=== PATIENT | female | born 1965 | race Caucasian/White ===

== ENCOUNTER 2017-03-04 21:15 | Emergency (ER) | payer OTHER ==
[2017-03-05] MEDS ORDERED: OXYCODONE-ACETAMINOPHEN 5-325 MG TABLET PO ONE (01:36)
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
[2017-03-05] MEDS ORDERED: HYDROCODONE/ACETAMINOPHEN 5-325 MG 6 TAB/DSPK PO PRN (02:32)
[2017-03-05 02:45] VITALS: BP 164/94
== END 2017-03-05 02:35 | disposition home or self-care (01) ==
LOC: ER 21:15
DX: S16.1XXA Strain of muscle, fascia and tendon at neck level, initial encounter (principal); S46.912A Strain of unspecified muscle, fascia and tendon at shoulder and upper arm level, left arm, initial encounter; S09.90XA Unspecified injury of head, initial encounter; V43.52XA Car driver injured in collision with other type car in traffic accident, initial encounter; Y93.89 Activity, other specified; M25.512 Pain in left shoulder; R11.0 Nausea; M54.2 Cervicalgia
CPT/HCPCS: 70450; 72125; 99284

== ENCOUNTER 2017-03-26 10:24 | Emergency (ER) | payer OTHER ==
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
[2017-03-26 12:12] VITALS: BP 138/88
== END 2017-03-26 12:00 | disposition home or self-care (01) ==
LOC: ER 10:24
DX: M54.2 Cervicalgia (principal); R03.0 Elevated blood-pressure reading, without diagnosis of hypertension; M25.512 Pain in left shoulder; V87.7XXD Person injured in collision between other specified motor vehicles (traffic), subsequent encounter
CPT/HCPCS: 99283

== ENCOUNTER 2017-10-02 09:51 | Emergency (ER) | payer SELFPAY ==
--- NOTE | 2017-10-02 10:06 | ER Document Report ---
ED General - General Chief Complaint: Fall Injury Stated Complaint: FALL,LEFT KNEE PAIN Time Seen by Provider: 10/02/17 10:05 Mode of Arrival: Wheelchair Information source: Patient Notes: Patient is a 52 year old female complaining of left shoulder/arm pain and left knee pain with associated swelling that started after she tripped and fell 3 days ago. She reports that she is not concerned about her shoulder/arm but more concerned with the swelling of her knee. She reports pain is worse with weight bearing and ambulation. She has tried OTC pain without any relief. Denies hitting head or LOC. She is not on any anti-coagulants. TRAVEL OUTSIDE OF THE [place] IN LAST 30 DAYS: No - Related Data Allergies/Adverse Reactions: aspirin Allergy (Verified 10/02/17 09:51) Past Medical History - General Information source: Patient - Social History Smoking Status: Unknown if Ever Smoked Family History: Reviewed & Not Pertinent Renal/ Medical History: Denies: Hx Peritoneal Dialysis Past Surgical History: Reports: Hx Breast Surgery - cystectomy, Hx Hysterectomy , Hx Orthopedic Surgery - Lt shoulder - Immunizations Hx Diphtheria, Pertussis, Tetanus Vaccination: Yes Review of Systems - Review of Systems Constitutional: See HPI EENT: No symptoms reported Cardiovascular: No symptoms reported Respiratory: No symptoms reported Gastrointestinal: No symptoms reported Genitourinary: No symptoms reported Female Genitourinary: No symptoms reported Musculoskeletal: See HPI Skin: No symptoms reported Hematologic/Lymphatic: No symptoms reported Neurological/Psychological: See HPI Physical Exam - Vital signs Vitals: Temp Pulse Resp BP Pulse Ox 97.9 F 108 H 16 131/84 H 94 10/02/17 09:57 10/02/17 09:57 10/02/17 09:57 10/02/17 09:57 10/02/17 09:57 - Notes Notes: PHYSICAL EXAM: CONSTITUTIONAL: Alert and oriented, well-appearing and in no acute distress. HENT: Normocephalic, atraumatic. Trachea midline. Uvula midline. Moist mucous membranes. EYES: Pupils equal round and reactive to light, EOM intact. Sclera anicteric, conjunctiva are normal. No entrapment. NECK: supple without lymphadenopathy. No midline tenderness or paraspinous muscle spasms. No step-offs or deformities. ROM intact. HEART: Regular rate and rhythm without murmurs. LUNGS: CTAB and equal. No wheezes, rales or rhonchi. BACK: nontender, no paraspinous spasm, 5+/5 strengths, DTRs 2+, SLR -. EXTREMITIES: left elbow - mild tenderness to palpation with ecchymosis, no deformity or edema. Normal range of motion, no pitting edema. No cyanosis. Cap Refill <3 seconds. Left knee - tender to palpation over prepataller region with significant non-pitting edema and overlying ecchymosis, no deformity, erythema. ROM intact but painful. Distal pulses intact. NEURO: Cranial nerves grossly intact. Normal sensory/motor exams. PSYCH: Normal mood, normal affect. SKIN: Warm and dry. Normal turgor. No rashes or lesions noted. Course - Re-evaluation Re-evalutation: 10/02/17 10:27 Patient seen and examined. Patient is alert and oriented, speaking in full sentences without difficulty. Left knee with abrasion and obvious swelling, possible effusion. Will order x-ray. 10/02/17 11:20 Reviewed imaging studies, no acute fracture or joint effusion. Noted prepatellar swelling. Will supply Gomez wrap and give pain medication. Follow- up with orthopedics as directed. At this time, will discharge with return precautions and follow-up recommendations. Verbal discharge instructions given at the bedside and opportunity for questions given. Medication warnings reviewed. Patient is in agreement with this plan and has verbalized understanding of return precautions and the need for primary care follow-up in the next 24-72 hours. - Vital Signs Vital signs: Temp Pulse Resp BP Pulse Ox 97.7 F 100 16 130/75 H 98 10/02/17 11:42 10/02/17 11:42 10/02/17 11:42 10/02/17 11:42 10/02/17 11:42 Discharge - Discharge Clinical Impression: Swelling of knee joint, left Accidental fall Qualifiers: Encounter type: initial encounter Qualified Code(s): W19.XXXA - Unspecified fall, initial encounter Left knee injury Qualifiers: Encounter type: initial encounter Qualified Code(s): S89.92XA - Unspecified injury of left lower leg, initial encounter Condition: Stable Disposition: HOME, SELF-CARE Additional Instructions: Your x-rays did not show any fracture or joint effusion. We recommend using Gomez wrap, ice and elevating your knee. We have prescribed to pain medication, do not take while drinking alcohol or driving. We advised you to follow-up with orthopedics. Return if symptoms worsen. Prescriptions: Oxycodone HCl/Acetaminophen [Percocet 5-325 mg Tablet] 1 tab PO Q6HP PRN #10 tablet PRN Reason: Forms: Elevated Blood Pressure
--- NOTE | 2017-10-02 11:12 | RADIOLOGY REPORT (SQ) ---
EXAM DESCRIPTION: KNEE LEFT 4 VIEW COMPLETED DATE/TIME: 10/02/2017 10:47 am REASON FOR STUDY: s/p fall, swelling COMPARISON: None. NUMBER OF VIEWS: Four views. TECHNIQUE: AP, lateral, and both oblique radiographic images acquired of the left knee. LIMITATIONS: None. FINDINGS: MINERALIZATION: Osteopenic BONES: No acute fracture or dislocation. No worrisome bone lesions. JOINT: No suprapatellar knee joint effusion. Mild lateral and medial compartment joint space narrowi ng. SOFT TISSUES: There is diffuse prepatellar soft tissue swelling extending into the pretibial soft tis sues. No radiopaque foreign body. No soft tissue gas OTHER: No other significant finding. IMPRESSION: No acute displaced fracture. No joint effusion. TECHNICAL DOCUMENTATION: JOB ID: [id number]- All Rights Reserved
[2017-10-02] MEDS ORDERED: OXYCODONE-ACETAMINOPHEN 5-325 MG TABLET PO ONE (11:34)
[2017-10-02 11:45] VITALS: BP 130/75
== END 2017-10-02 11:43 | disposition home or self-care (01) ==
LOC: ER 09:51
DX: S80.02XA Contusion of left knee, initial encounter (principal); M25.462 Effusion, left knee; W19.XXXA Unspecified fall, initial encounter; Y92.480 Sidewalk as the place of occurrence of the external cause; Z88.6 Allergy status to analgesic agent
CPT/HCPCS: 99283

== ENCOUNTER 2017-11-01 08:57 | Emergency (ER) | payer SELFPAY ==
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
[2017-11-01] MEDS ORDERED: HYDROCODONE/ACETAMINOPHEN 5-325 MG TABLET PO ONE ×2 (09:13→11:18)
--- NOTE | 2017-11-01 10:27 | RADIOLOGY REPORT (SQ) ---
EXAM DESCRIPTION: ELBOW LEFT OVER 2 VIEWS COMPLETED DATE/TIME: 11/01/2017 10:15 am REASON FOR STUDY: fall 2 nights ago COMPARISON: None. NUMBER OF VIEWS: Four views. TECHNIQUE: AP, lateral, and both oblique radiographic images acquired of the left elbow. LIMITATIONS: None. FINDINGS: MINERALIZATION: Normal. BONES: Partial visualization distal humerus fracture. Bones otherwise intact. JOINT: No effusion. SOFT TISSUES: Soft tissue swelling. OTHER: No other significant finding. IMPRESSION: PARTIAL VISUALIZATION DISTAL HUMERUS FRACTURE. NO ADDITIONAL ACUTE OR SIGNIFICANT FINDI NGS. TECHNICAL DOCUMENTATION: JOB ID: [id number] [email or web address]- All Rights Reserved
--- NOTE | 2017-11-01 10:28 | RADIOLOGY REPORT (SQ) ---
EXAM DESCRIPTION: HUMERUS LEFT COMPLETED DATE/TIME: 11/01/2017 10:15 am REASON FOR STUDY: FALL 2 NIGHTS AGO COMPARISON: None. NUMBER OF VIEWS: Two views. TECHNIQUE: Two radiographic images were acquired of the left humerus to include elbow and shoulder i n at least one projection. LIMITATIONS: None. FINDINGS: MINERALIZATION: Normal. BONES: Spiral fracture distal humeral diaphysis with approximately 2 cm separation of dominant fractu re fragments. 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 SOFT TISSUES: Associated soft tissue swelling. OTHER: No other significant finding. IMPRESSION: MODERATELY DISPLACED SPIRAL FRACTURE DISTAL HUMERAL DIAPHYSIS ABOVE. TECHNICAL DOCUMENTATION: JOB ID: [id number] [employer]- All Rights Reserved
[2017-11-01 11:33] VITALS: BP 125/94
== END 2017-11-01 11:32 | disposition home or self-care (01) ==
LOC: ER 08:57
PROC: 2W39X1Z Immobilization of Left Upper Extremity using Splint (ICD-10-PCS; principal; 2017-11-01)
DX: S42.402A Unspecified fracture of lower end of left humerus, initial encounter for closed fracture (principal); M25.522 Pain in left elbow; M79.89 Other specified soft tissue disorders; W19.XXXA Unspecified fall, initial encounter
CPT/HCPCS: 99283

== ENCOUNTER 2017-11-04 15:08 | Observation (INO) | payer SELFPAY ==
[~2017-11-04 15:08] MED LIST: DEXAMETHASONE SOD PHOSPHATE INJ 4 MG/1 ML VIAL ONE; METOCLOPRAMIDE HCL INJ/PF 10 MG/2 ML SDV ONE; ROCURONIUM BROMIDE INJ 50 MG/5 ML VIAL IV ONE; SUCCINYLCHOLINE CHLORIDE INJ 200 MG/10 ML VIAL ONE
[2017-11-04] MEDS ORDERED: CEFAZOLIN 2 GM/D5W RTU 2 GM/50 ML RTUPB IV ONE (15:16)
--- NOTE | 2017-11-04 15:48 | RADIOLOGY REPORT (SQ) ---
EXAM DESCRIPTION: CHEST SINGLE VIEW COMPLETED DATE/TIME: 11/04/2017 3:37 pm REASON FOR STUDY: PREOP COMPARISON: None. EXAM PARAMETERS: NUMBER OF VIEWS: One view. TECHNIQUE: Single frontal radiographic view of the chest acquired. RADIATION DOSE: NA LIMITATIONS: None. FINDINGS: LUNGS AND PLEURA: 1 cm right apical lung nodule versus ossification/ calcification of the 1st rib costochondral cartilage. Band like atelectasis at the left lung base. No pleural effusions. No pneumothorax. MEDIASTINUM AND HILAR STRUCTURES: No masses. Contour normal. HEART AND VASCULAR STRUCTURES: Mild cardiomegaly BONES: Osteoporotic HARDWARE: None in the chest. OTHER: No other significant finding. IMPRESSION: 1 cm costochondral cartilage calcification versus right apical lung nodule. Left basilar bandlike scarring or atelectasis TECHNICAL DOCUMENTATION: JOB ID: [id number] [employer]- All Rights Reserved
[2017-11-04 15:56] LABS: ABSOLUTE EOSINOPHILS # (AUTO) 0.1 10^3/uL (0.0-0.6); ABSOLUTE LYMPHOCYTES (AUTO) 2.1 10^3/uL (0.5-4.7); ABSOLUTE MONOCYTES (AUTO) 0.4 10^3/uL (0.1-1.4); ABSOLUTE NEUT (AUTO) 3.4 10^3/uL (1.7-8.2); BASOPHILS % (AUTO) 0.7 % (0-2); EOSINOPHILS % (AUTO) 1.1 % (0-6); HEMATOCRIT 39.5 % (36.0-47.0); HEMOGLOBIN 13.4 g/dL (12.0-15.5); LYMPHOCYTES % (AUTO) 34.8 % (13-45); MEAN CORPUSCULAR HEMOGLOBIN 29.8 pg (27.0-33.4); MEAN CORPUSCULAR HGB CONC 33.9 g/dL (32.0-36.0); MEAN CORPUSCULAR VOLUME 88 fl (80-97); MONOCYTES % (AUTO) 6.6 % (3-13); PLATELET COUNT 209 10^3/uL (150-450); RED BLOOD COUNT 4.49 10^6/uL (3.72-5.28); RED CELL DISTRIBUTION WIDTH 13.6 % (11.5-14.0); SEGMENTED NEUTROPHILS % (AUTO) 56.8 % (42-78); TOTAL CELLS COUNTED % (AUTO) 100 %
[2017-11-04 16:08] LABS: ANION GAP 8 (5-19); BLOOD UREA NITROGEN 8 mg/dL (7-20); CALCIUM 9.9 mg/dL (8.4-10.2); CARBON DIOXIDE 25 mmol/L (22-30); CHLORIDE 105 mmol/L (98-107); GLUCOSE 121 mg/dL (75-110); SODIUM 138.3 mmol/L (137-145)
[2017-11-04] MEDS ORDERED: FENTANYL CITRATE INJ/PF 100 MCG/2 ML AMPUL ONE ×3 (16:46→17:52)
[2017-11-04] MEDS ORDERED: HYDROMORPHONE HCL INJ/PF 2 MG/ML AMPULE ONE (16:46)
[2017-11-04] MEDS ORDERED: ACETAMINOPHEN 100 ML IV ONE (16:47)
[2017-11-04] MEDS ORDERED: ONDANSETRON HCL INJ/PF 4 MG/2 ML SDV ONE (16:47)
[2017-11-04] MEDS ORDERED: MIDAZOLAM 2 MG/2 ML INJ ONE (16:47)
[2017-11-04] MEDS ORDERED: PROPOFOL INJ 200 MG/20 ML VIAL IV ONE (16:47)
--- NOTE | 2017-11-04 17:03 | Progress Note ---
Provider Note Provider Note: Patient seen and evaluated in preop holding area. Patient sustained a fall onto her left arm resulting in a torsional injury. Patient radiographs days later where x-rays confirmed distal humerus fracture and she was placed in a splint. He has been complaining of numbness and tingling along with burning that radiates from the fracture site into her hand dorsally. Pain 10/10. Left upper extremity: Splint intact. Notable swelling and ecchymosis throughout the distal humerus. Patient is full extension of the IP and MP joints. EPL/FPL intact. Weakness with wrist extension however full active range of motion. Patient has hypoesthesias along the superficial radial nerve distribution. Assessment/plan Left extra-articular distal humerus fracture Given the alignment and patient's neurologic symptoms and concerned of possible radial nerve entrapment within the fracture site. I went in detail with the patient her current risks of surgery most notably postoperative radial nerve palsy which may result in functional deficit of the left upper extremity necessitating possible further operative intervention. Other risks including infection, hardware failure/irritation and nonunion were also discussed after discussing risks and benefits of surgery patient has agreed to proceed with operative treatment despite these risks.
[2017-11-04] MEDS ORDERED: FENTANYL CITRATE INJ/PF 100 MCG/2 ML AMPUL IV PRN ×3 (18:15)
[2017-11-04] MEDS ORDERED: OXYCODONE-ACETAMINOPHEN 5-325 MG TABLET PO PRN ×2 (18:15)
[2017-11-04] MEDS ORDERED: MEPERIDINE HCL/PF INJ 25 MG/1 ML DISP.SYRIN IV PRN (18:15)
[2017-11-04] MEDS ORDERED: DIPHENHYDRAMINE HCL 50 MG/ML VIAL IV PRN (18:15)
[2017-11-04] MEDS ORDERED: PROMETHAZINE HCL INJ 25 MG/1 ML VIAL IV PRN ×2 (18:15)
[2017-11-04] MEDS ORDERED: MORPHINE SULFATE 10 MG/ML INJ IV PRN (18:15)
--- NOTE | 2017-11-04 19:50 | PDOC DISCHARGE SUMMARY ---
Discharge Summary (SDC) - Discharge Final Diagnosis: Left distal humerus fracture Date of Surgery: 11/04/17 Discharge Date: 11/04/17 Condition: Good Treatment or Instructions: Schedule Follow Up w/ Dr. Maximus Sy @ [facility] for Surgery to be seen in 10-14 days or as scheduled [place]: [place]: [place]: Ice and elevate Keep splint clean/dry/intact. If your fingers become numb please unwrap the Gomez wrap but leave the splint in place, if the sensation does not return within 30 minutes please return to the emergency department. May begin finger range of motion attempting to make full fist. Please use ibuprofen (Motrin or Advil) 600-800 mg every 8 hours as needed for pain or fever after 3 days of Toradol. You may also use acetaminophen (Tylenol ) 1000 mg every 4-6 hours as needed for pain or fever. Please be aware that many medications contain acetaminophen, do not exceed a total of 1000 mg of acetaminophen every 6 hours. If ibuprofen and acetaminophen are not sufficient for your pain you may take the Percocet. Please be aware that the Percocet does contain Tylenol. Stool softener of choice when on pain medication. Prescriptions: Ketorolac Tromethamine [Toradol 10 mg Tablet] 10 mg PO Q8HP PRN #10 tablet PRN Reason: Oxycodone HCl/Acetaminophen [Percocet 5-325 mg Tablet] 1 - 2 tab PO ASDIR PRN # 40 tablet PRN Reason: Discharge Diet: As Tolerated Respiratory Treatments at Home: Deep Breathing/Coughing, Incentive Spirometer Discharge Activity: No Lifting Over 10 Pounds, No Lifting/Push/Pulling Report the Following to Your Physician Immediately: Fever over 101 Degrees, Unusual Bleeding, Redness, Swelling, Warmth
--- NOTE | 2017-11-04 19:57 | Operative Report ---
Operative Report DATE OF SURGERY: 11/04/17 PREOPERATIVE DIAGNOSIS: Left extra-articular distal humerus fracture POSTOPERATIVE DIAGNOSIS: Same OPERATION: 1. ORIF extra-articular/distal third humeral fracture. 2. Radial nerve neurolysis SURGEON: RICHMOND LOUIS ANESTHESIA: GA COMPLICATIONS: None ESTIMATED BLOOD LOSS: <30cc PROCEDURE: Indication for above procedure: 52-year-old female who sustained a fall resulting in a torsional injury of her left humerus. Patient was seen at the emergency room in a delayed fashion and x -rays confirmed fracture. Patient was placed in a splint subsequently followed up in our office today. Given patient's symptoms and alignment recommended operative intervention. Risks and benefits were explained to the patient, patient verbalized understanding consented for the procedure. Procedure In Detail: Patient was seen and evaluated in the preoperative holding area. The LEFT upper extremity was initialized and marked. Patient received 2g of Ancef IV for bacterial prophylaxis. Patient was taken back to the operative room where transferred to the operative table and placed under general anesthesia. Once they were adequately anesthetized patient was placed in a lateral position. A surgical team debriefing was performed ensuring all instrumentation was available, the surgical procedure was discussed with possible concerns reviewed. The upper extremity was prepped with ChloraPrep and draped in a sterile fashion. Throughout manipulation of the extremity during prepping careful attention was made to the fracture site to avoid neurapraxia to the radial nerve. A timeout was done identifying correct patient, procedure and extremity everyone in attendance agree with this and verbalized no concerns. The extremity was exsanguinated the tourniquet was inflated to 250 mmHg. Longitudinal posterior midline incision was utilized. Any peripheral bleeding was coagulated with bipolar cautery. I then identified the posterior cutaneous nerve of the arm and carefully followed it to the exit point of the radial nerve as it crossed posteriorly entering the lateral intermuscular septum. The radial nerve was then neurolysed proximally and distally to the fracture was found within the fracture fragments along the distal third. It was carefully elevated from the distal third. There was notable contusion of the nerve at the level of the fracture site. A vessel loop was placed around the radial nerve for protection. I then exposed the fracture any intervening hematoma was removed and copiously irrigated with saline. Fracture fragments were delineated. There was a sagittal split that was incomplete and extended to just proximal to the olecranon fossa. A reduction tenaculum was placed around this sagittal split and 2 interfragmentary 2.7 millimeter screws were placed to secure the fracture. Once this fracture was secured I was able to near anatomically reduce the 2 major fracture fragments. This was held with a tenaculum and radiographs were obtained confirming acceptable reduction. I then placed 2 interfragmentary 3.5 mm cortex screws with adequately held my reduction. I then attempted to place a posterior medial plate with did not fit the patient's anatomy appropriately and thus a posterior lateral plate was chosen. A 8 hole Clem posterior lateral distal humerus plate was placed posteriorly special attention was made to place the plate underneath the radial nerve. Under direct visualization the plate was placed deep to the nerve and the nerve was protected. The plate was then secured with olive wires proximally and distally. C-arm was obtained confirming appropriate placement of the plate. The plate was fixated proximally with bicortical 3.5 millimeters screw and then distally with a 3.5 mm cortex screw. Radiographs once again obtained confirming appropriate placement of the plate. I then completed fixation proximally with a bicortical cortex and locking screw respectively. Distally the plate was further secured with additional cortex screw and 3 locking screws. The locking screws distally were drilled to but not through the far cortex. C-arm fluoroscopy was obtained which demonstrated acceptable reduction of the fracture with no evidence of intra-articular screw penetration. Patient had full elbow range of motion of the table without crepitation. Tourniquet was then deflated. Any bleeding was controlled until the wound was dry with cautery. The interval between the lateral triceps was closed with 0 Vicryl suture. Deep adipose closing stitches were utilized secondary to patient 's body habitus. Subcutaneous tissues closed with interrupted 2-0 Vicryl suture. Skin was closed with constantine. Acticoat dressing was applied. Patient was placed in a posterior plaster splint. Sponge counts, instrument counts, needle counts counts were correct. Patient was then awoken from anesthesia. Transferred from the operating room table to the operating room stretcher. There was no intraoperative complications patient tolerated procedure well stable to PACU. Postoperative plan: Patient will follow-up the office in 2 weeks at which point we will obtain radiographs. Patient will begin range of motion of her elbow 4 weeks postoperatively.
[2017-11-04] MEDS ORDERED: HYDROMORPHONE HCL INJ/PF 2 MG/ML AMPULE IV PRN (19:58)
[2017-11-04] MEDS ORDERED: KETOROLAC TROMETHAMINE INJ/PF 30 MG/1 ML SDV IV PRN (19:58)
[2017-11-04] MEDS ORDERED: ONDANSETRON HCL INJ/PF 4 MG/2 ML SDV IV PRN (19:58)
[2017-11-04] MEDS: FENTANYL CITRATE INJ/PF 100 MCG/2 ML AMPUL ONE ×2 (20:13→20:18)
[2017-11-04] MEDS: MORPHINE SULFATE 10 MG/ML INJ ONE ×2 (20:24→20:30)
[2017-11-05] MEDS: CEFAZOLIN 2 GM/D5W RTU 2 GM/50 ML RTUPB IV SCH ×3 (00:15→11:07)
[2017-11-05] MEDS: OXYCODONE-ACETAMINOPHEN 5-325 MG TABLET PO PRN ×2 (01:25→08:20)
[2017-11-05] MEDS ORDERED: CEFAZOLIN 2 GM/D5W RTU 2 GM/50 ML RTUPB IV ONE (06:10)
--- NOTE | 2017-11-05 07:18 | PDOC PROGRESS REPORT ---
Subjective Progress Note for:: 11/05/17 Subjective:: 52-year-old white female one day status post open reduction internal fixation for distal left radial fracture. Patient lying recumbent in hospital bed with left upper extremity elevated on multiple pillows. Left upper extremity is in upper extremity splint wrapped with Gomez bandage. Patient reports she is much more comfortable now that the dressing has been changed and it is no longer draining blood. Reason For Visit: S42.401A UNSP FRACTURE OF LOWER END OF RIGHT HUMER Physical Exam Vital Signs: Temp Pulse Resp BP Pulse Ox 36.7 C 90 20 125/83 100 11/04/17 21:30 11/04/17 21:30 11/04/17 21:30 11/04/17 21:30 11/04/17 21:30 Intake & Output 11/04/17 11/05/17 11/06/17 06:59 06:59 06:59 Intake Total 1563 Output Total 150 Balance 1413 Weight 111.3 kg General appearance: PRESENT: no acute distress, well-developed, well-nourished Head exam: PRESENT: atraumatic, normocephalic Respiratory exam: PRESENT: unlabored Pulses: PRESENT: normal dorsalis pedis pul, +2 pedal pulses bilateral Vascular exam: PRESENT: normal capillary refill Additional comments: Patient's left upper extremity is placed in upper extremity splint and elevated on multiple pillows. Patient has +2 radial pulses and brisk capillary refill to fingers on bilateral upper extremities. She notes that there is some tingling and numbness. Patient is reassured that this is due to the nature of her injury as it was very close to many of the nerve tracks in the wrist. Patient voiced understanding of this explanation. Her sensory motor functions are intact and her distal neurovascular exam is intact. Musculoskeletal exam: PRESENT: tenderness Additional comments: Patient is screen tender helper to palpation with manipulation of the left upper extremity. She notes particular tenderness with attempted pronation supination. Due to the nature of patient's injury and subsequent surgery she may benefit from occupational therapy for the left upper extremity to improve strength range of motion for daily activities. Neurological exam: PRESENT: alert, awake, oriented to person, oriented to place , oriented to time, oriented to situation, CN II-XII grossly intact. ABSENT: motor sensory deficit Psychiatric exam: PRESENT: appropriate affect, normal mood. ABSENT: homicidal ideation, suicidal ideation Skin exam: PRESENT: dry, intact, warm. ABSENT: cyanosis, rash Results Laboratory Results: 11/04/17 15:40 11/04/17 15:40 11/04/17 11/04/17 15:40 15:40 WBC 6.0 RBC 4.49 Hgb 13.4 Hct 39.5 MCV 88 MCH 29.8 MCHC 33.9 RDW 13.6 Plt Count 209 Seg Neutrophils % 56.8 Lymphocytes % 34.8 Monocytes % 6.6 Eosinophils % 1.1 Basophils % 0.7 Absolute Neutrophils 3.4 Absolute Lymphocytes 2.1 Absolute Monocytes 0.4 Absolute Eosinophils 0.1 Absolute Basophils 0.0 Sodium 138.3 Potassium 4.0 Chloride 105 Carbon Dioxide 25 Anion Gap 8 BUN 8 Creatinine 0.56 Est GFR ( Amer) > 60 Est GFR (Non-Af Amer) > 60 Glucose 121 H Calcium 9.9 Impressions: Chest X-Ray 11/04/17 00:00 IMPRESSION: 1 cm costochondral cartilage calcification versus right apical lung nodule. Left basilar bandlike scarring or atelectasis Assessment & Plan - Diagnosis (1) Distal radius fracture, left Qualifiers: Encounter type: subsequent encounter Fracture type: closed Fracture healing: with routine healing Is this a current diagnosis for this admission?: Yes - Plan Summary Plan Summary: 52-year-old white female one day status post open reduction internal fixation of left distal radial fracture. Patient has been placed in upper extremity cast on this is clean dry and intact on exam this morning. It had been changed last night as there was ubiquitous serosanguineous drainage. Patient notes some numbness to her fingers of the left upper extremity and patient was reassured that this can be normal based on the nature of her injury and surgery. Patient voiced understanding. Otherwise her pain is well controlled and she has no other concerns. She will be discharged to her home today and may benefit from services from occupational therapy to improve strength range of motion of left wrist particularly for activities of daily living. She will follow-up with Dr. Sy at [facility] for surgery 2 weeks postoperatively for suture removal and reevaluation.
[2017-11-05 08:36] VITALS: BP 125/83
--- NOTE | 2017-11-05 08:51 | EKG REPORT ---
SEVERITY:- NORMAL ECG - SINUS RHYTHM : Confirmed by: Tonja Rajan MD 05-Nov-2017 08:50:47
--- NOTE | 2017-11-05 09:42 | RADIOLOGY REPORT (SQ) ---
EXAM DESCRIPTION: HUMERUS LEFT; NO CHG FLUORO COMPLETED DATE/TIME: 11/04/2017 11:10 pm REASON FOR STUDY: ORIF LT DISTAL HUMERUS S42.401A UNSP FRACTURE OF LOWER END OF RIGHT HUMERUS, INIT COMPARISON: Left humerus films 11/01/2017 FLUOROSCOPY TIME: 0.4 minutes 5 digital C-arm images saved to PACS. TECHNIQUE: Intra-operative images acquired during surgical procedure to evaluate progress. NUMBER OF IMAGES: 5 digital C-arm images LIMITATIONS: None. FINDINGS: Intra procedural imaging and fluoro during ORIF spiral fracture distal left humeral diaphy sis. Please see the operative report for further details IMPRESSION: Intra procedural imaging and fluoro COMMENT: Quality ID [id number]: Final reports for procedures using fluoroscopy that document radiation exp osure indices, or exposure time and number of fluorographic images (if radiation exposure indices are not available) Please consult full operative report of the attending physician for description of the procedure. TECHNICAL DOCUMENTATION: JOB ID: [id number] [employer]- All Rights Reserved
== END 2017-11-05 12:30 | disposition home or self-care (01) ==
LOC: OROUT 15:08 → EDSTATUS 17:15 → 2N 21:36 → OROUT 21:36 → 2N 21:48 → OROUT 11-05 12:30
PROVIDERS: ADMIT Orthopaedic Surgery; ATTEND Orthopaedic Surgery
PROC: 0PSG04Z Reposition Left Humeral Shaft with Internal Fixation Device, Open Approach (ICD-10-PCS; principal; 2017-11-04 17:15)
DX: S42.492A Other displaced fracture of lower end of left humerus, initial encounter for closed fracture (principal); W00.0XXA Fall on same level due to ice and snow, initial encounter; R20.1 Hypoesthesia of skin; Z98.890 Other specified postprocedural states
CPT/HCPCS: 36415; 85025; 80048; 71045; 73060; 93005; 93010; 24999; L3650 ×2; C1713 ×3; J2250; J3490; J1100; J3010; J1885; J2765; J2270; J1170; J0330; J2405; J2704; J0690 ×2; J0131; 01740; G0378

== ENCOUNTER → 2018-10-22 | Outpatient (CLI) | payer OTHER ==
--- NOTE | 2018-10-22 10:51 | RADIOLOGY REPORT (SQ) ---
EXAM DESCRIPTION: CT LT UPPER EXTREMITY WITHOUT COMPLETED DATE/TIME: 10/22/2018 10:11 am REASON FOR STUDY: DISPLACED COMMINUTED FX OF SHAFT OF LEFT HUMERUS (S42.352K) S42.352K DISPL COMMNT FX SHAFT OF HUMER, L ARM, 7THK COMPARISON: None. TECHNIQUE: Axial imaging performed through the left humerus with reformatted coronal and sagittal im aging windowed for bone and soft tissues. Images saved to PACS. 3D IMAGING: Were 3D images as MIP, SSD, or volume rendering performed at the work station? No. All CT scanners at this facility use dose modulation, iterative reconstruction, and/or weight based d osing when appropriate to reduce radiation dose to as low as reasonably achievable (ALARA). [facility]: Dose Right [facility]: CareDose [facility]: Dose Right [facility]: Teradose 4D [facility]: You.i LIMITATIONS: Metal artifact. RADIATION DOSE: CT Rad equipment meets quality standard of care and radiation dose reduction techniq ues were employed. CTDIvol: 12.4 mGy. DLP: 874 mGy-cm. mGy. FINDINGS: SOFT TISSUES: No obvious swelling or foreign body. BONES: Nonunion fracture distal humeral diaphysis status post plate and screw fixation. No obvious s inus tract. MINERALIZATION: Normal. OTHER: No other significant finding. IMPRESSION: Nonunion fracture distal humerus. TECHNICAL DOCUMENTATION: JOB ID: [id number] Quality ID # [id number]: Final reports with documentation of one or more dose reduction techniques (e.g., Au tomated exposure control, adjustment of the mA and/or kV according to patient size, use of iterative reconstruction technique) 2010 [employer]- All Rights Reserved Reading location - IP/workstation name: [email or web address]
== END ==
LOC: RAD 09:28
PROVIDERS: ATTEND Orthopaedic Surgery
DX: S42.352K Displaced comminuted fracture of shaft of humerus, left arm, subsequent encounter for fracture with nonunion (principal); X58.XXXD Exposure to other specified factors, subsequent encounter

== ENCOUNTER 2019-02-21 11:36 | Emergency (ER) | payer OTHER ==
[2019-02-21 11:41] VITALS: BP 186/116
--- NOTE | 2019-02-21 11:50 | ER Document Report ---
ED Medical Screen (RME) - General Chief Complaint: Arm Problem Stated Complaint: LEFT ARM PAIN Time Seen by Provider: 02/21/19 11:46 TRAVEL OUTSIDE OF THE [place] IN LAST 30 DAYS: No - HPI Notes: 02/21/19 11:48 Patient is a 54-year-old female who presents to the emergency department complaining of left elbow pain, swelling, warmth, and some redness over the past 1 to 2 days. Patient states that she did have surgery with plates and screws put in little over a year ago. Patient states that 1 of the plates has since slipped and she is supposed to have another surgery performed to correct it. No new injury. Denies GOMEZ, fever, neck pain, URI, CP, SOB, Abd pain. I have treated and performed a rapid initial assessment of this patient. A comprehensive ED assessment and evaluation of the patient, analysis of test results and completion of medical decision making process will be conducted by additional ED providers. PHYSICAL EXAMINATION: GENERAL: Well-appearing, well-nourished and in no acute distress. A&Ox4. Answers questions appropriately. LUNGS: Breath sounds clear to auscultation bilaterally and equal. No wheezes rales or rhonchi. HEART: Regular rate and rhythm without murmurs, rubs, gallops. Left elbow: + mild swelling, erythema, and warmth noted. + mild tenderness. N/v intact distal. FROM. Strength 5+/5. - Related Data Allergies/Adverse Reactions: aspirin Allergy (Severe, Verified 02/21/19 11:37) Hives Past Medical History - Past Medical History Cardiac Medical History: Reports: Hx Hypertension - Occasional Denies: Hx Congestive Heart Failure, Hx Coronary Artery Disease, Hx Heart Attack Pulmonary Medical History: Denies: Hx Asthma, Hx Bronchitis, Hx COPD, Hx Pneumonia, Hx Tuberculosis Neurological Medical History: Denies: Hx Cerebrovascular Accident, Hx Seizures Renal/ Medical History: Denies: Hx End Stage Renal Disease, Hx Kidney Stones, Hx Peritoneal Dialysis GI Medical History: Denies: Hx Cirrhosis, Hx Gastroesophageal Reflux Disease, Hx Ulcer Musculoskeltal Medical History: Denies Hx Arthritis, Denies Hx Multiple Sclerosis Psychiatric Medical History: Denies: Hx Bipolar Disorder, Hx Depression, Hx Schizophrenia Past Surgical History: Reports: Hx Breast Surgery - cystectomy, Hx Hysterectomy, Hx Orthopedic Surgery - Lt shoulder - Immunizations Hx Diphtheria, Pertussis, Tetanus Vaccination: Yes History of Influenza Vaccine for 07/2017 - 12/2017 Season: Refused Physical Exam - Vital signs Vitals: Temp Pulse Resp BP Pulse Ox 99 F 93 18 186/116 H 97 02/21/19 11:40 02/21/19 11:40 02/21/19 11:40 02/21/19 11:40 02/21/19 11:40 Course - Vital Signs Vital signs: Temp Pulse Resp BP Pulse Ox 99 F 93 18 186/116 H 97 02/21/19 11:40 02/21/19 11:40 02/21/19 11:40 02/21/19 11:40 02/21/19 11:40
[2019-02-21] MEDS ORDERED: CEFTRIAXONE INJ 1000 MG VIAL IM ONE (12:25)
[2019-02-21] MEDS ORDERED: LIDOCAINE 1% INJ-PF (10 MG/ML) 30 ML SDV INFIL ONE (12:28)
[2019-02-21] MEDS ORDERED: KETOROLAC TROMETHAMINE 60 MG/2 ML SDV IM ONE (12:29)
--- NOTE | 2019-02-21 12:30 | ER Document Report ---
ED General - General Chief Complaint: Arm Problem Stated Complaint: LEFT ARM PAIN Time Seen by Provider: 02/21/19 11:46 Primary Care Provider: RICHMOND LOUIS DO [ACTIVE STAFF] - Follow up tomorrow Notes: Patient is a 54-year-old female with history of ORIF of the left elbow that presents to the emergency department for chief complaint of left elbow redness and swelling. Patient states she noticed on Friday she had redness and swelling to the left elbow, where she previously had an ORIF from a distal humerus fracture. She states is been sore, and she noticed some warmth on the outside of it, but not on the flexor surface of her elbow. She is noticed some mild swelling as well, but states that her arm is always swollen, which is the redness that concerned her. She denies noting any fevers, chills, night sweats or streaking of redness up her arm. She states she does rest her elbow on hard surfaces for most of the day to try to keep it elevated. Past Medical History: Denies chronic medical conditions Past Surgical History: ORIF of the distal humerus, left rotator cuff surgery Social History: Denies tobacco, alcohol or drug use. Family History: Reviewed and noncontributory for presenting illness Allergies: Reviewed, see documented allergy list. REVIEW OF SYSTEMS: Other than noted above, the 12 point review of systems was reviewed with the patient and were negative, all pertinent findings are included in the HPI. PHYSICAL EXAMINATION: Vital signs reviewed, nursing noted reviewed. GENERAL: Well-appearing, well-nourished and in no acute distress. HEAD: Atraumatic, normocephalic. EYES: Eyes appear normal, extraocular movements intact, sclera anicteric, conjunctiva are normal. ENT: nares patent, oropharynx clear without exudates. Moist mucous membranes. NECK: Normal range of motion, supple without lymphadenopathy LUNGS: Breath sounds clear to auscultation bilaterally and equal. No wheezes rales or rhonchi. HEART: Regular rate and rhythm without murmurs ABDOMEN: Soft, nontender, normoactive bowel sounds. No rebound, guarding, or rigidity. No masses appreciated. EXTREMITIES: The left elbow has erythema and warmth over the olecranon, there is mild tenderness to palpation, the erythema is not circumferential to the joint, the anterior aspect of the joint is cool, nonedematous, and no erythema. Patient has good range of motion of the elbow joint otherwise. There is no lymphangitis noted. There is no open wound, fluctuance, or concern for abscess. The rest the patient's extremity exam is grossly unremarkable. She has good range of motion, tendon function intact, cap refill intact distally in all extremities. NEUROLOGICAL: No focal neurological deficits. Moves all extremities spontaneously Motor and sensory grossly intact on exam. PSYCH: Normal mood, normal affect. SKIN: Warm, Dry, normal turgor, no rashes or lesions noted on exposed skin TRAVEL OUTSIDE OF THE [place] IN LAST 30 DAYS: No - Related Data Allergies/Adverse Reactions: aspirin Allergy (Severe, Verified 02/21/19 11:37) Hives Past Medical History - Social History Smoking Status: Never Smoker Family History: Reviewed & Not Pertinent Patient has suicidal ideation: No Patient has homicidal ideation: No - Past Medical History Cardiac Medical History: Reports: Hx Hypertension - Occasional Denies: Hx Congestive Heart Failure, Hx Coronary Artery Disease, Hx Heart Attack Pulmonary Medical History: Denies: Hx Asthma, Hx Bronchitis, Hx COPD, Hx Pneumonia, Hx Tuberculosis Neurological Medical History: Denies: Hx Cerebrovascular Accident, Hx Seizures Renal/ Medical History: Denies: Hx End Stage Renal Disease, Hx Kidney Stones, Hx Peritoneal Dialysis GI Medical History: Denies: Hx Cirrhosis, Hx Gastroesophageal Reflux Disease, Hx Ulcer Musculoskeletal Medical History: Denies Hx Arthritis, Denies Hx Multiple S clerosis Psychiatric Medical History: Denies: Hx Bipolar Disorder, Hx Depression, Hx Schizophrenia Past Surgical History: Reports: Hx Breast Surgery - cystectomy, Hx Hysterectomy, Hx Orthopedic Surgery - Lt shoulder - Immunizations Hx Diphtheria, Pertussis, Tetanus Vaccination: Yes Physical Exam - Vital signs Vitals: Temp Pulse Resp BP Pulse Ox 99 F 93 18 186/116 H 97 02/21/19 11:40 02/21/19 11:40 02/21/19 11:40 02/21/19 11:40 02/21/19 11:40 Course - Re-evaluation Re-evalutation: Patient seen and examined vital signs reviewed. imaging ordered as appropriate for the patient's presenting symptoms and complaint, with consideration of any critical or life threatening conditions that may be associated with their obtained history and exam as noted above. Patient was treated with IM Rocephin, and IM Toradol Results were reviewed when available and demonstrated x-rays demonstrate nonunion, of the fracture of the left distal humerus, which is known to this patient, I do not suspect septic joint, and have low suspicion for even septic bursitis, is most likely acute inflammatory bursitis, from the patient resting her elbow on hard surfaces, I advised her to rested on a soft surface, provide a warm compress, and for precaution she was given oral antibiotics with Keflex and Bactrim, and advised to see her orthopedic surgeon at her scheduled appointment tomorrow. 02/21/19 13:[address] Mcginnis, who is on-call for the orthopedic group, and agree with plan of care of IM Rocephin, and starting on Keflex and Bactrim, and follow-up tomorrow in the office. The patient was re-evaluated and was stable and improved Evaluation was most consistent with olecranon bursitis Results were discussed with the patient at this point, after careful consideration I feel that that patient can be discharged from the emergency department, the patient was educated treatments and reasons to return to the emergency department based on their presumed diagnosis as noted above, they were advised to followup with a primary care physician in 2-3 days. Patient was agreeable to plan of care. *Note is created using voice recognition software and may contain spelling, syntax or grammatical errors. Elbow X-Ray 02/21/19 11:48 IMPRESSION: Nonunited distal left humerus fracture with motion at the fracture site, lucency along the hardware at the nonunited fracture. No left elbow joint effusion. Radius, ulna in the field of view are intact Humerus X-Ray 02/21/19 12:07 IMPRESSION: Nonunited left distal humerus diaphysis fracture with lucency around the hardware and periosteal new bone formation suggesting motion at the fracture site. Infection with nonunion could not entirely be excluded - Vital Signs Vital signs: Temp Pulse Resp BP Pulse Ox 99 F 93 18 186/116 H 97 02/21/19 11:40 02/21/19 11:40 02/21/19 11:40 02/21/19 11:40 02/21/19 11:40 Discharge - Discharge Clinical Impression: Olecranon bursitis, left elbow Condition: Stable Disposition: HOME, SELF-CARE Instructions: Olecranon Bursitis ([facility]) Additional Instructions: Please follow-up with your orthopedic surgeon tomorrow, take the antibiotics as prescribed, starting this evening, please get them filled today, you may take Tylenol, 1000 mg (2 extra strength Tylenol), every 8 hours to help with your pain, keep it elevated on a soft surface as much as possible. If you develop fevers, chills, chest pain, shortness of breath or difficulty breathing, or have any further concerns, do not hesitate to return to the emergency department. Prescriptions: RX: Cephalexin Monohydrate [Keflex 500 mg Capsule] 500 mg PO TID 7 Days #21 capsule Sulfamethoxazole/Trimethoprim [Bactrim Ds Tablet] 1 each PO BID #14 tablet Referrals: RICHMOND LOUIS DO [ACTIVE STAFF] - Follow up tomorrow
--- NOTE | 2019-02-21 12:32 | RADIOLOGY REPORT (SQ) ---
EXAM DESCRIPTION: ELBOW LEFT OVER 2 VIEWS COMPLETED DATE/TIME: 02/21/2019 12:18 pm REASON FOR STUDY: left elbow pain/swelling COMPARISON: Left humerus films 11/01/2017, 02/21/2019 CT left humerus 10/22/2018 Left elbow films 11/01/2018 NUMBER OF VIEWS: Four views. TECHNIQUE: AP, lateral, and both oblique radiographic images acquired of the left elbow. LIMITATIONS: None. FINDINGS: MINERALIZATION: Normal. BONES: There is a 1 year and 5-month-old fracture at the distal left humerus, with a long fixation pl ate. Nonunion of the left humerus at the fracture is suspected, with lucency along the hardware from continued motion at the fracture site. There is no acute fracture on today's study. Ulna, radius intact. JOINT: No elbow joint effusion. SOFT TISSUES: Olecranon soft tissue swelling. No foreign body. OTHER: No other significant finding. IMPRESSION: Nonunited distal left humerus fracture with motion at the fracture site, lucency along t he hardware at the nonunited fracture. No left elbow joint effusion. Radius, ulna in the field of view are intact TECHNICAL DOCUMENTATION: JOB ID: [id number] [employer]- All Rights Reserved Reading location - IP/workstation name: [email or web address]
--- NOTE | 2019-02-21 12:33 | RADIOLOGY REPORT (SQ) ---
EXAM DESCRIPTION: HUMERUS LEFT COMPLETED DATE/TIME: 02/21/2019 12:18 pm REASON FOR STUDY: left elbow pain, prev surgery COMPARISON: Left humerus CT 10/22/2018 Left humerus plain films 11/01/2017 NUMBER OF VIEWS: Two views. TECHNIQUE: Two radiographic images were acquired of the left humerus to include elbow and shoulder i n at least one projection. LIMITATIONS: None. FINDINGS: MINERALIZATION: Normal. BONES: A nonunited left distal humerus diaphysis fracture is present with lucency along the hardware, and periosteal new bone formation along the mid diaphysis of the left humerus. This is similar comp ared to CT left upper extremity 10/22/2018. SOFT TISSUES: No obvious swelling or foreign body. 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 Infection with nonunion could no t entirely be excluded TECHNICAL DOCUMENTATION: JOB ID: [id number] [employer]- All Rights Reserved Reading location - IP/workstation name: [email or web address]
== END 2019-02-21 13:00 | disposition home or self-care (01) ==
LOC: ER 11:36
DX: S42.402K Unspecified fracture of lower end of left humerus, subsequent encounter for fracture with nonunion (principal); X58.XXXD Exposure to other specified factors, subsequent encounter; M70.22 Olecranon bursitis, left elbow; Z98.890 Other specified postprocedural states; I10 Essential (primary) hypertension; Z88.6 Allergy status to analgesic agent
CPT/HCPCS: 99283; 96372; 73080; 73060; J1885; J3490; J0696

== ENCOUNTER 2019-07-27 09:43 | Observation (INO) | payer OTHER ==
--- NOTE | 2019-07-21 11:28 | RADIOLOGY REPORT (SQ) ---
EXAM DESCRIPTION: CHEST PA/LATERAL COMPLETED DATE/TIME: 07/21/2019 10:57 am REASON FOR STUDY: PRE-OP COMPARISON: 12/15/2018 EXAM PARAMETERS: NUMBER OF VIEWS: two views TECHNIQUE: Digital Frontal and Lateral radiographic views of the chest acquired. RADIATION DOSE: NA LIMITATIONS: none FINDINGS: LUNGS AND PLEURA: No opacities, masses or pneumothorax. No pleural effusion. MEDIASTINUM AND HILAR STRUCTURES: No masses or contour abnormalities. HEART AND VASCULAR STRUCTURES: Heart normal size. No evidence for failure. BONES: No acute findings. HARDWARE: None in the chest. OTHER: No other significant finding. IMPRESSION: NO SIGNIFICANT RADIOGRAPHIC FINDING IN THE CHEST. TECHNICAL DOCUMENTATION: JOB ID: [id number] [employer]- All Rights Reserved Reading location - IP/workstation name: [email or web address]
[2019-07-21 11:41] LABS: ABSOLUTE LYMPHOCYTES (AUTO) 1.3 10^3/uL (0.5-4.7); ABSOLUTE MONOCYTES (AUTO) 0.5 10^3/uL (0.1-1.4); ABSOLUTE NEUT (AUTO) 5.3 10^3/uL (1.7-8.2); BASOPHILS % (AUTO) 0.4 % (0-2); EOSINOPHILS % (AUTO) 0.6 % (0-6); HEMATOCRIT 45.4 % (36.0-47.0); HEMOGLOBIN 15.5 g/dL (12.0-15.5); LYMPHOCYTES % (AUTO) 18.9 % (13-45); MEAN CORPUSCULAR HGB CONC 34.1 g/dL (32.0-36.0); MEAN CORPUSCULAR VOLUME 88 fl (80-97); MONOCYTES % (AUTO) 6.5 % (3-13); PLATELET COUNT 212 10^3/uL (150-450); RED BLOOD COUNT 5.16 10^6/uL (3.72-5.28); RED CELL DISTRIBUTION WIDTH 14.3 % (11.5-14.0); SEGMENTED NEUTROPHILS % (AUTO) 73.6 % (42-78); TOTAL CELLS COUNTED % (AUTO) 100 %; WHITE BLOOD COUNT 7.1 10^3/uL (4.0-10.5)
[2019-07-21 12:10] LABS: ANION GAP 13 (5-19); BLOOD UREA NITROGEN 8 mg/dL (7-20); CARBON DIOXIDE 26 mmol/L (22-30); CHLORIDE 97 mmol/L (98-107); GLUCOSE 130 mg/dL (75-110); PHOSPHORUS 3.7 mg/dL (2.5-4.5); POTASSIUM 3.8 mmol/L (3.6-5.0)
[2019-07-21 12:13] LABS: C-REACTIVE PROTEIN < 5.0 mg/L (<10.0)
[2019-07-21 12:24] LABS: ERYTHROCYTE SEDIMENTATION RATE 11 mm/hr (0-30)
--- NOTE | 2019-07-21 13:07 | EKG REPORT ---
SEVERITY:- NORMAL ECG - SINUS RHYTHM : Confirmed by: Haider Flynn MD 21-Jul-2019 13:06:58
[~2019-07-27 09:43] MED LIST changes: +CEFAZOLIN SODIUM 2 GM in DEXTROSE 5%-WATER 100 ML IV PRN; +FENTANYL CITRATE INJ/PF 100 MCG/2 ML AMPUL ONE; +FENTANYL CITRATE INJ/PF 250 MCG/5 ML AMPULE ONE; +LACTATED RINGERS 1000 ML IV PRN; +LIDOCAINE 0.5% INJ-PF (5 MG/ML) 50 ML SDV SUBCUT PRN; -METOCLOPRAMIDE HCL INJ/PF 10 MG/2 ML SDV ONE; +MIDAZOLAM 2 MG/2 ML INJ ONE; +ONDANSETRON HCL INJ/PF 4 MG/2 ML SDV ONE; +PROPOFOL INJ 200 MG/20 ML VIAL IV ONE; -ROCURONIUM BROMIDE INJ 50 MG/5 ML VIAL IV ONE; -SUCCINYLCHOLINE CHLORIDE INJ 200 MG/10 ML VIAL ONE
[2019-07-27] MEDS ORDERED: BUPIVACAINE HCL 0.5 % INJ/PF 30 ML SDV ONE (10:17)
[2019-07-27] MEDS ORDERED: OXYCODONE-ACETAMINOPHEN 5-325 MG TABLET PO PRN ×2 (13:19)
[2019-07-27] MEDS ORDERED: MORPHINE SULFATE 10 MG/ML INJ IV PRN (13:19)
[2019-07-27] MEDS ORDERED: MEPERIDINE HCL/PF INJ 25 MG/1 ML DISP.SYRIN IV PRN (13:19)
[2019-07-27] MEDS ORDERED: FENTANYL CITRATE INJ/PF 100 MCG/2 ML AMPUL IV PRN ×3 (13:19)
[2019-07-27] MEDS ORDERED: DIPHENHYDRAMINE HCL 50 MG/ML VIAL IV PRN (13:19)
[2019-07-27] MEDS ORDERED: ONDANSETRON HCL INJ/PF 4 MG/2 ML SDV IV PRN ×2 (13:19→17:31)
[2019-07-27] MEDS ORDERED: KETOROLAC TROMETHAMINE 60 MG/2 ML SDV ONE (14:15)
[2019-07-27] MEDS ORDERED: SUCCINYLCHOLINE CHLORIDE INJ 200 MG/10 ML VIAL ONE (14:15)
[2019-07-27] MEDS ORDERED: VANCOMYCIN HCL INJ 1000 MG VIAL ONE (16:37)
[2019-07-27] MEDS ORDERED: CEFAZOLIN INJ 1 GM VIAL ONE (17:09)
--- NOTE | 2019-07-27 17:45 | Discharge Summary ---
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 Maximus Sy @ [facility] for Surgery to be seen in 10-14 days or as scheduled [place]: [place]: [place]: Ice and elevate Keep splint clean/dry/intact, do not remove. If your fingers become numb please unwrap the Gomez wrap but leave the splint in place, if the sensation does not return within 30 minutes please return to the emergency department. May begin finger range of motion attempting to make full fist. Please use ibuprofen (Motrin or Advil) 600-800 mg every 8 hours as needed for pain or fever DO NOT TAKE w/ TORADOL may use once TORADOL complete. You may also use acetaminophen (Tylenol) 1000 mg every 4-6 hours as needed for pain or fever. Please be aware that many medications contain acetaminophen, do not exceed a total of 1000 mg of acetaminophen every 6 hours. If ibuprofen and acetaminophen are not sufficient for your pain you may take the Percocet/[place]. Please be aware that the Percocet/[place] does contain Tylenol. Stool softener of choice when on pain medication. USE OF [id number] IBUPROFEN: Ibuprofen (Advil, Nuprin, Medipren, Motrin IB) is a medication for fever and pain control. In addition, it has anti- inflammatory effects which may be beneficial, especially in the treatment of injuries. It's best to take ibuprofen with food. Persons with ulcer disease or allergy to aspirin should notify their physician of this before taking ibuprofen. Ibuprofen can be given every four to six hours, for a total of four doses daily. Age Pain or fever dose Antiinflammatory dose 6-8 yr 200 mg (1 tab) 200 mg (1 tab) 9-11 yr 200 mg (1 tab) 200-400 mg (1-2 tab) 11-14 yr 200-400 mg (1-2 tab) 400 mg (2 tab) 15-adult 400 mg (2 tab) 600 mg (3 tab) ORAL NARCOTIC MEDICATION: You have been given a prescription for pain control. This medication is a narcotic. It's best taken with food, as nausea can result if taken on an empty stomach. Don't operate machinery or drive within six hours of taking this medication. Do not combine this medicine with alcohol, or with any medication which can cause sedation (such as cold tablets or sleeping pills) unless you get permission from the physician. Narcotics tend to cause constipation. If possible, drink plenty of fluids and eat a diet high in fiber and fruits. Please be aware that prescription narcotics also have the potential for abuse. People become addicted to these medications because of the general sense of wellbeing that they induce. This feeling along with a significant reduction in tension, anxiety, and aggression provides a stimulating seductive quality to these drugs. Once your pain is under control, we encourage you to discard your unused narcotics. Prescriptions: Oxycodone HCl/Acetaminophen [Percocet 7.5-325 mg Tablet] 1 tab PO Q6 PRN #25 tab PRN Reason: Discharge Diet: As Tolerated Respiratory Treatments at Home: Deep Breathing/Coughing, Incentive Spirometer Discharge Activity: No Lifting Over 10 Pounds, No Lifting/Push/Pulling Report the Following to Your Physician Immediately: Fever over 101 Degrees, Unusual Bleeding, Redness, Swelling, Warmth, Increased Soreness
[2019-07-27] MEDS ORDERED: FENTANYL CITRATE INJ/PF 100 MCG/2 ML AMPUL ONE (17:59)
[2019-07-27] MEDS ORDERED: CEFAZOLIN 2 GM/D5W RTU 2 GM/50 ML RTUPB IV SCH (18:00)
[2019-07-27] MEDS ORDERED: MORPHINE SULFATE 10 MG/ML INJ ONE (18:00)
[2019-07-27 18:32] LABS: HEMATOCRIT 35.8 % (36.0-47.0); MEAN CORPUSCULAR HEMOGLOBIN 29.6 pg (27.0-33.4); MEAN CORPUSCULAR HGB CONC 33.4 g/dL (32.0-36.0); MEAN CORPUSCULAR VOLUME 89 fl (80-97); PLATELET COUNT 167 10^3/uL (150-450); RED BLOOD COUNT 4.04 10^6/uL (3.72-5.28); RED CELL DISTRIBUTION WIDTH 14.3 % (11.5-14.0)
--- NOTE | 2019-07-27 18:36 | Operative Report ---
Operative Report DATE OF SURGERY: 07/27/19 PREOPERATIVE DIAGNOSIS: Left humeral shaft nonunion POSTOPERATIVE DIAGNOSIS: Same OPERATION: Takedown nonunion left humeral shaft with radial nerve neurolysis revision open reduction to fixation with placement harvesting the left proximal tibial autograft SURGEON: RICHMOND LOUIS ANESTHESIA: GA COMPLICATIONS: None ESTIMATED BLOOD LOSS: 450cc PROCEDURE: Indication for above procedure: 54-year-old female who sustained significant distal third humeral shaft fracture underwent open reduction to fixation unfortunately throughout fracture healing patient went on to develop nonunion of unknown entity. Metabolic work-up demonstrate no evidence of abnormality thus we discussed treatment options and decision was made to proceed with revision open reduction internal fixation. Risks and benefits were explained patient verbalized understanding consented for surgical procedure. Procedure In Detail: Patient was seen and evaluated in the preoperative holding area. The LEFT upper extremity was initialized and marked. Patient received 2g of Ancef IV for bacterial prophylaxis. Patient was taken back to the operative room where transferred to the operative table and placed under general anesthesia. Once they were adequately anesthetized patient was placed in the lateral position bilateral lower extremities nonoperative right upper extremity cervical spine was carefully padded. A surgical team debriefing was performed ensuring all instrumentation was available, the surgical procedure was discussed with possible concerns reviewed. The upper extremity was prepped with ChloraPrep and draped in a sterile fashion. A timeout was done identifying correct patient, procedure and extremity everyone in attendance agree with this and verbalized no concerns. Previous skin incision was utilized and extended proximally and distally. Proximal dissection was performed initially and triceps split performed. Radial nerve was identified proximal to the previous zone of injury and neuro lysis was performed from a proximal to distal direction as the radial nerve crossed from medial to lateral. Vessel loop was placed around the radial nerve. Intermittently throughout the case nerve stimulator was utilized to confirm continued normal function. Once the radial nerve was adequate neurolysed and protected focus turned to hardware removal. The plate was isolated and all screws were removed. There were 2 interfragmentary screws distally which remained intact. There was significant scar tissue throughout the fracture site. Cultures were obtained from this region. Supraperiosteal dissection was performed proximally and distally excluding the area with the plate was and at the fracture site. Fracture site was aggressively debrided until normal-appearing bleeding bone was isolated. Unfortunately along the distal fragment and proximal fragment there was loss of cortex along the posterior aspect which extended approximately 3 cm proximally and 2 cm distally. All previous screw holes were debrided with a curette. Given the amount of bone loss decision was made to proceed with autogenous proximal tibial bone graft. The left lower extremity was prepped with ChloraPrep and draped in a sterile fashion. Tourniquet was insufflated. Longitudinal skin incision was made along Mariela's tubercle. Blunt dissection was performed. Fascia was then incised in a 3 sided configuration and osteotome also used for a 3 sided configuration establishing a small trapdoor. Through the trapdoor bone graft was harvested. Wound was copiously irrigated with normal saline. Defect was packed with cancellus bone chips. Fascia was closed with interrupted 0 Vicryl suture. Subcutaneous tissues were closed with interrupted 3-0 Monocryl suture. Skin was closed with constantine and a soft dressing placed. Attention then once again turned to the nonunion site. Wound was copiously irrigated with normal saline. Given the amount of bone loss and requirements for significant structural stability decision was made to place a 4.5 mm Clem plate. 4.5 mm plate was then placed underneath the radial nerve blunt dissection proximally also identified the axillary nerve which was elevated and the plate placed superiorly down to bone with the actually the nerve running superior to the plate. The plate was initially fixated distally with bicortical screws bringing the plate firmly down to bone. The 2 fragments proximally distally were then compressed and fixation was obtained proximally utilizing compression through the dynamic compression hole. Radiographs were obtained demonstrating mild deviation however this was contributed to patient's medial bone loss and current shortening technique did provide interfragmentary compression. Fixation was then completed proximally with additional bicortical screw and 2 locking screws obtaining 8 cortices of fixation within the proximal segment where the bone was bicortical. One locking screw and one bicortical screw was placed through the proximal fragment where you new cortical bone remained. Fixation was then completed distally with additional locking screws previous bicortical screw was switched for the appropriate size locking screw. Final C- arm fluoroscopy was obtained confirming adequate alignment of the fracture with compression at the fracture site. Nerve stimulator once again utilized confirming adequate function of the radial nerve Wound was copiously irrigated with normal saline. Any peripheral veins were coa gulated with cautery. The bone defect at the fracture was impacted with autogenous cancellus bone. The unicortical defect was impacted with 10 cc of Clem Vitoss synthetic bone graft and any remaining cancellus chips. Superior to the fascia 1 g of vancomycin powder was placed. Fascia was closed with interrupted 0 Vicryl suture. Subcutaneous tissues were closed with interrupted 2-0 Vicryl and 0 Vicryl suture. Skin closed with constantine and wound dressed with Acticoat and waffle dressing. Patient was placed in a posterior splint. Sponge counts, instrument counts, needle counts were correct. Patient was then awoken from anesthesia. Transferred from the operating room table to the operating room stretcher. There was no intraoperative complications patient tolerated procedure well stable to PACU. Postop plan: Patient will be admitted overnight for observation. Will follow-up in the office in 2 weeks at which point we will obtain radiographs.
--- NOTE | 2019-07-27 19:20 | RADIOLOGY REPORT (SQ) ---
EXAM DESCRIPTION: NO CHG FLUORO; HUMERUS LEFT COMPLETED DATE/TIME: 07/27/2019 6:52 pm; 07/27/2019 6:53 pm REASON FOR STUDY: ORIF L HUMERUS COMPARISON: None. FLUOROSCOPY TIME: 1.7 minutes 7 Images saved to PACS LIMITATIONS: None. PROCEDURE: ORIF left humerus FINDINGS: Images from fluoro document placement of a long plate on the humerus with multiple screws. IMPRESSION: ORIF left humerus. Refer to operative note for further information. COMMENT: PQRS 6045F: Fluoroscopy time of the procedure is documented in the report. TECHNICAL DOCUMENTATION: JOB ID: [id number] [employer]- All Rights Reserved Reading location - IP/workstation name: [email or web address]
--- NOTE | 2019-07-27 19:20 | RADIOLOGY REPORT (SQ) ---
EXAM DESCRIPTION: NO CHG FLUORO; HUMERUS LEFT COMPLETED DATE/TIME: 07/27/2019 6:52 pm; 07/27/2019 6:53 pm REASON FOR STUDY: ORIF L HUMERUS COMPARISON: None. FLUOROSCOPY TIME: 1.7 minutes 7 Images saved to PACS LIMITATIONS: None. PROCEDURE: ORIF left humerus FINDINGS: Images from fluoro document placement of a long plate on the humerus with multiple screws. IMPRESSION: ORIF left humerus. Refer to operative note for further information. COMMENT: PQRS 6045F: Fluoroscopy time of the procedure is documented in the report. TECHNICAL DOCUMENTATION: JOB ID: [id number] [employer]- All Rights Reserved Reading location - IP/workstation name: [email or web address]
[2019-07-27] MEDS: OXYCODONE-ACETAMINOPHEN 5-325 MG TABLET PO PRN (20:53)
[2019-07-27] MEDS: CEFAZOLIN SODIUM 2 GM in DEXTROSE 5%-WATER 100 ML IV SCH (20:55)
[2019-07-28] MEDS: CEFAZOLIN SODIUM 2 GM in DEXTROSE 5%-WATER 100 ML IV SCH ×4 (02:22→20:35)
[2019-07-28] MEDS: OXYCODONE-ACETAMINOPHEN 5-325 MG TABLET PO PRN ×4 (02:43→21:53)
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
[2019-07-28 11:03] LABS: HEMATOCRIT 30.5 % (36.0-47.0); HEMOGLOBIN 10.5 g/dL (12.0-15.5); MEAN CORPUSCULAR HEMOGLOBIN 30.6 pg (27.0-33.4); MEAN CORPUSCULAR HGB CONC 34.3 g/dL (32.0-36.0); MEAN CORPUSCULAR VOLUME 89 fl (80-97); PLATELET COUNT 151 10^3/uL (150-450); RED BLOOD COUNT 3.42 10^6/uL (3.72-5.28); RED CELL DISTRIBUTION WIDTH 14.5 % (11.5-14.0); WHITE BLOOD COUNT 8.8 10^3/uL (4.0-10.5)
[2019-07-28] MEDS: RIVAROXABAN 10 MG TABLET PO SCH (18:24)
[2019-07-29] MEDS: CEFAZOLIN SODIUM 2 GM in DEXTROSE 5%-WATER 100 ML IV SCH ×4 (03:49→21:43)
[2019-07-29] MEDS: FENTANYL CITRATE INJ/PF 100 MCG/2 ML AMPUL IV PRN ×3 (04:51→19:20)
--- NOTE | 2019-07-29 06:36 | PDOC PROGRESS REPORT ---
Subjective Progress Note for:: 07/29/19 Reason For Visit: LEFT HUMERAL NONUNION 54-year-old white female now postop day 2 status post ORIF of a left distal humerus fracture. Patient with some complaints of pain, limited mobility, and potential reaction to Xarelto? Physical Exam Vital Signs: Temp Pulse Resp BP Pulse Ox 36.9 C 90 16 99/55 L 96 07/29/19 03:57 07/29/19 03:57 07/29/19 03:57 07/29/19 03:57 07/29/19 03:57 Intake & Output 07/27/19 07/28/19 07/29/19 06:59 06:59 06:59 Intake Total 6980 1500 Output Total 4525 Balance 2455 1500 Weight 98.6 kg 103.2 kg Physical Exam: Overweight middle-aged white female lying in bed. Patient is alert, oriented, and appropriate. General appearance: PRESENT: no acute distress, mild distress Head exam: PRESENT: normocephalic Respiratory exam: PRESENT: unlabored Cardiovascular exam: PRESENT: RRR Vascular exam: PRESENT: normal capillary refill GI/Abdominal exam: PRESENT: soft Rectal exam: PRESENT: deferred Musculoskeletal exam: PRESENT: other - Left upper extremity and dressing wrapped in a Gomez wrap. Radial nerve motor function intact. Neurological exam: PRESENT: alert, awake, oriented to person, oriented to place, oriented to time, oriented to situation. ABSENT: motor sensory deficit Psychiatric exam: PRESENT: appropriate affect, normal mood. ABSENT: homicidal ideation, suicidal ideation Skin exam: PRESENT: dry, intact, warm. ABSENT: cyanosis, rash Results Laboratory Results: 07/28/19 10:15 07/21/19 10:38 07/28/19 10:15 WBC 8.8 RBC 3.42 L Hgb 10.5 L Hct 30.5 L MCV 89 MCH 30.6 MCHC 34.3 RDW 14.5 H Plt Count 151 Impressions: Chest X-Ray 07/21/19 00:00 IMPRESSION: NO SIGNIFICANT RADIOGRAPHIC FINDING IN THE CHEST. Fluoroscopy 07/27/19 00:00 IMPRESSION: ORIF left humerus. Refer to operative note for further information. Humerus X-Ray 07/27/19 00:00 IMPRESSION: ORIF left humerus. Refer to operative note for further information. 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 Plan will be for ongoing physical therapy and potential discharge tomorrow. - Time Time Spent with patient: 15-24 minutes Anticipated discharge: Home with Homehealth Within: within 24 hours
[2019-07-29] MEDS: OXYCODONE-ACETAMINOPHEN 5-325 MG TABLET PO PRN ×3 (07:57→21:39)
[2019-07-29] MEDS: RIVAROXABAN 10 MG TABLET PO SCH (16:59)
[2019-07-30] MEDS: FENTANYL CITRATE INJ/PF 100 MCG/2 ML AMPUL IV PRN ×2 (02:30→09:42)
[2019-07-30] MEDS: CEFAZOLIN SODIUM 2 GM in DEXTROSE 5%-WATER 100 ML IV SCH ×2 (02:30→12:58)
[2019-07-30] MEDS: OXYCODONE-ACETAMINOPHEN 5-325 MG TABLET PO PRN ×2 (06:24→13:11)
[2019-07-30 13:12] VITALS: BP 94/65
--- NOTE | 2019-07-30 16:24 | PDOC DISCHARGE SUMMARY ---
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 Patient had notable pain for the first 24-48 hours. However over the past 24 hours she has seen improvement. Patient was admitted for pain control since her operative treatment on 07/27/2019. In the past 24 hours she has been able to ambulate and get to the restroom without significant limitation. Pain has notably improved. Patient H&H has remained stable throughout her hospital course thus on 07/30/2019 she was orthopedically stable for discharge to home. Patient was to call with any questions or concerns or increased redness swelling drainage or temperature greater than 101.5. Patient read above instructions understood instructions orthopedically stable for discharge to home. - Additional Information Resuscitation Status: Full Code Discharge Diet: As Tolerated Discharge Activity: No Lifting Over 10 Pounds, No Lifting/Push/Pulling Referrals: RICHMOND LOUIS DO [ACTIVE STAFF] - 08/06/19 9:00 am (PLEASE CALL THE OFFICE TO CONFIRM YOUR APPOINTMENT. PER OFFICE REQUEST. OR IF YOU HAVE ANY QUESTIONS OR CONCERNS.) Prescriptions: Oxycodone HCl/Acetaminophen [Percocet 7.5-325 mg Tablet] 1 tab PO Q6 PRN #25 tab PRN Reason: Home Medications: Cetirizine HCl [Zyrtec] 10 mg PO DAILYP PRN 11/04/17 Tramadol HCl [Ultram] 50 mg PO PRN PRN 07/21/19 Oxycodone HCl/Acetaminophen [Percocet 7.5-325 mg Tablet] 1 tab PO Q6 PRN #25 tab 07/27/19 History of Present Illiness History of Present Illness: MIKE LUNA is a 54 year old female Physical Exam Vital Signs: Temp Pulse Resp BP Pulse Ox 98.0 F 84 16 103/65 96 07/30/19 03:32 07/30/19 03:32 07/30/19 03:32 07/30/19 03:32 07/30/19 03:32 Intake & Output 07/29/19 07/30/19 07/31/19 06:59 06:59 06:59 Intake Total 1500 1020 Balance 1500 1020 Weight 103.2 kg 103.9 kg Results Laboratory Results: WBC 8.8 10^3/uL (4.0-10.5) 07/28/19 10:15 RBC 3.42 10^6/uL (3.72-5.28) L 07/28/19 10:15 Hgb 10.5 g/dL (12.0-15.5) L 07/28/19 10:15 Hct 30.5 % (36.0-47.0) L 07/28/19 10:15 MCV 89 fl (80-97) 07/28/19 10:15 MCH 30.6 pg (27.0-33.4) 07/28/19 10:15 MCHC 34.3 g/dL (32.0-36.0) 07/28/19 10:15 RDW 14.5 % (11.5-14.0) H 07/28/19 10:15 Plt Count 151 10^3/uL (150-450) 07/28/19 10:15 Lymph % (Auto) 18.9 % (13-45) 07/21/19 10:38 [place] % (Auto) 6.5 % (3-13) 07/21/19 10:38 Eos % (Auto) 0.6 % (0-6) 07/21/19 10:38 Baso % (Auto) 0.4 % (0-2) 07/21/19 10:38 Absolute Neuts (auto) 5.3 10^3/uL (1.7-8.2) 07/21/19 10:38 Absolute Lymphs (auto) 1.3 10^3/uL (0.5-4.7) 07/21/19 10:38 Absolute Monos (auto) 0.5 10^3/uL (0.1-1.4) 07/21/19 10:38 Absolute Eos (auto) 0.0 10^3/uL (0.0-0.6) 07/21/19 10:38 Absolute Basos (auto) 0.0 10^3/uL (0.0-0.2) 07/21/19 10:38 Seg Neutrophils % 73.6 % (42-78) 07/21/19 10:38 ESR 11 mm/hr (0-30) 07/21/19 10:38 Sodium 135.7 mmol/L (137-145) L 07/21/19 10:38 Potassium 3.8 mmol/L (3.6-5.0) 07/21/19 10:38 Chloride 97 mmol/L (98-107) L 07/21/19 10:38 Carbon Dioxide 26 mmol/L (22-30) 07/21/19 10:38 Anion Gap 13 (5-19) 07/21/19 10:38 BUN 8 mg/dL (7-20) 07/21/19 10:38 Creatinine 0.50 mg/dL (0.52-1.25) L 07/21/19 10:38 Est GFR ( Amer) > 60 (>60) 07/21/19 10:38 Est GFR (MDRD) Non-Af > 60 (>60) 07/21/19 10:38 Glucose 130 mg/dL (75-110) H 07/21/19 10:38 Calcium 10.0 mg/dL (8.4-10.2) 07/21/19 10:38 Phosphorus 3.7 mg/dL (2.5-4.5) 07/21/19 10:38 C-Reactive Protein < 5.0 mg/L (<10.0) 07/21/19 10:38 Vitamin D 25-Hydroxy 17.9 ng/mL (14.7-68.3) 07/28/19 10:15 Vit D 1,25-Dihydroxy 67.2 pg/mL (19.9-79.3) 07/28/19 10:15 Blood Type A POSITIVE 07/27/19 14:35 Antibody Screen NEGATIVE 07/27/19 14:35 Impressions: Chest X-Ray 07/21/19 00:00 IMPRESSION: NO SIGNIFICANT RADIOGRAPHIC FINDING IN THE CHEST. Fluoroscopy 07/27/19 00:00 IMPRESSION: ORIF left humerus. Refer to operative note for further information. Humerus X-Ray 07/27/19 00:00 IMPRESSION: ORIF left humerus. Refer to operative note for further information. Stroke Is this a Stroke Patient?: No Acute Heart Failure - Is this a Heart Failure Patient?: No
== END 2019-07-30 14:17 | disposition home or self-care (01) ==
LOC: OROUT 09:43 → 2N 17:44
PROVIDERS: ADMIT Orthopaedic Surgery; ATTEND Orthopaedic Surgery
PROC: 0PUG07Z Supplement Left Humeral Shaft with Autologous Tissue Substitute, Open Approach (ICD-10-PCS; 2019-07-27)
PROC: 0QBH0ZZ Excision of Left Tibia, Open Approach (ICD-10-PCS; 2019-07-27)
PROC: 0PSG04Z Reposition Left Humeral Shaft with Internal Fixation Device, Open Approach (ICD-10-PCS; principal; 2019-07-27 12:00)
DX: S42.302K Unspecified fracture of shaft of humerus, left arm, subsequent encounter for fracture with nonunion (principal); X58.XXXD Exposure to other specified factors, subsequent encounter; Z01.810 Encounter for preprocedural cardiovascular examination; Z01.811 Encounter for preprocedural respiratory examination
CPT/HCPCS: 93005; 86900; 86901; 36415 ×3; 87070; 87205; 86850; 84100; 85025; 85027 ×2; 85652; 87075; 86140; 80048; 82652; 82306; 71046; 73060; 93010; 97530; 97116 ×2; 97162; 01744; 24435; C1898; C1713 ×2; J2250; J0690 ×4; J1100; J1885; J3010 ×4; J2270; J0330; J2405; J7060 ×4; J7120; J2704; J3370; G0378; G0379; J3490

== ENCOUNTER 2020-06-30 20:40 | Emergency (ER) | payer MEDICAID, OTHER ==
[2020-06-30] MEDS ORDERED: MORPHINE SULFATE 10 MG/ML INJ IV ONE (21:23)
[2020-06-30] MEDS ORDERED: RINGERS SOLUTION,LACTATED 1,000 ML IV ONE (21:23)
[2020-06-30] MEDS ORDERED: VANCOMYCIN HCL INJ 1000 MG VIAL IV ONE (21:24)
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
[2020-06-30 22:13] LABS: ABSOLUTE EOSINOPHILS # (AUTO) 0.1 10^3/uL (0.0-0.6); ABSOLUTE MONOCYTES (AUTO) 0.5 10^3/uL (0.1-1.4); ABSOLUTE NEUT (AUTO) 3.6 10^3/uL (1.7-8.2); BASOPHILS % (AUTO) 0.6 % (0-2); EOSINOPHILS % (AUTO) 0.8 % (0-6); HEMATOCRIT 45.9 % (36.0-47.0); HEMOGLOBIN 15.5 g/dL (12.0-15.5); LYMPHOCYTES % (AUTO) 41.9 % (13-45); MEAN CORPUSCULAR HGB CONC 33.8 g/dL (32.0-36.0); MEAN CORPUSCULAR VOLUME 89 fl (80-97); MONOCYTES % (AUTO) 6.9 % (3-13); PLATELET COUNT 250 10^3/uL (150-450); RED BLOOD COUNT 5.18 10^6/uL (3.72-5.28); RED CELL DISTRIBUTION WIDTH 14.9 % (11.5-14.0); SEGMENTED NEUTROPHILS % (AUTO) 49.8 % (42-78); TOTAL CELLS COUNTED % (AUTO) 100 %; WHITE BLOOD COUNT 7.1 10^3/uL (4.0-10.5)
[2020-06-30 22:17] LABS: ALBUMIN 4.8 g/dL (3.5-5.0); ALKALINE PHOSPHATASE 113 U/L (38-126); ANION GAP 15 (5-19); ASPARTATE AMINO TRANSFERASE 31 U/L (14-36); BILIRUBIN,DIRECT 0.3 mg/dL (0.0-0.4); BILIRUBIN,TOTAL 0.4 mg/dL (0.2-1.3); BLOOD UREA NITROGEN 4 mg/dL (7-20); CALCIUM 9.9 mg/dL (8.4-10.2); CARBON DIOXIDE 24 mmol/L (22-30); CHLORIDE 107 mmol/L (98-107); GLUCOSE 166 mg/dL (75-110); POTASSIUM 3.9 mmol/L (3.6-5.0); TOTAL PROTEIN 8.2 g/dL (6.3-8.2)
[2020-06-30] MEDS ORDERED: SULFAMETHOXAZOLE/TRIMETHOPRIM 800-160 MG TABLET PO ONE (23:11)
[2020-06-30] MEDS ORDERED: CEPHALEXIN 500 MG CAPSULE PO ONE (23:11)
[2020-06-30] MEDS ORDERED: SILVER SULFADIAZINE 1% CREAM 25 GM TP ONE (23:12)
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
[2020-07-01] MEDS ORDERED: DIPH/PERTUSS(ACELL)/TETANUS VAC/PF 0.5 ML SYR (>=10YO) IM ONE (00:30)
[2020-07-01 01:06] VITALS: BP 126/77
[2020-07-01] MEDS ORDERED: HYDROCODONE/ACETAMINOPHEN 5-325 MG TABLET PO ONE (01:09)
== END 2020-07-01 01:26 | disposition home or self-care (01) ==
LOC: ER 20:40
DX: T21.22XA Burn of second degree of abdominal wall, initial encounter (principal); T22.00XA Burn of unspecified degree of shoulder and upper limb, except wrist and hand, unspecified site, initial encounter; T24.001A Burn of unspecified degree of unspecified site of right lower limb, except ankle and foot, initial encounter; T25.021A Burn of unspecified degree of right foot, initial encounter; L03.311 Cellulitis of abdominal wall; X10.1XXA Contact with hot food, initial encounter; I10 Essential (primary) hypertension
CPT/HCPCS: 99284; 90471; 96375; 96365; 96366; 36415; 87040; 83605; 85025; 80053; 90715; J2270; J3490 ×2; J7120; J3370